=== PATIENT | female | born 1980 | race Two or more races ===

== ENCOUNTER 2018-02-19 12:13 | Emergency (ER) | payer MEDICAID, OTHER ==
[2018-02-19] MEDS ORDERED: diphenhydrAMINE 50 MG/ML SDV IVPUSH ONE (12:35)
[2018-02-19] MEDS ORDERED: Sodium Chloride 0.9% 2.5 ML Syringe FLUSH PRN (12:35)
[2018-02-19] MEDS ORDERED: Ketorolac 30 MG/ML SDV IVPUSH ONE (12:35)
[2018-02-19] MEDS ORDERED: Sodium Chloride 0.9% 10 ML Syringe FLUSH PRN (12:35)
[2018-02-19] MEDS ORDERED: Sodium Chloride 0.9% 1,000 ML IV ONE (12:35)
[2018-02-19] MEDS ORDERED: Ondansetron 4 MG/2 ML SDV IVPUSH ONE (12:35)
[2018-02-19] MEDS ORDERED: Metoclopramide 10 MG/2 ML SDV IV ONE (12:35)
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
[2018-02-19 13:25] LABS: CHLORIDE,CL 105 mmol/L (98-107); SODIUM,NA 140 mmol/L (136-145)
[2018-02-19] MEDS ORDERED: Morphine 2 MG/ML Syringe IVPUSH ONE (13:54)
--- NOTE | 2018-02-20 18:44 | CT ---
EXAM DATE: 02/19/18 PATIENT'S AGE: 37 Patient: NAIMA GARBER Facility: [place], [place] Site . Site : 1980 Study: CT Head wo cont [id number]/30/2018 1:22:28 PM Ordering Physician: Doctor Benitez Final Report: INDICATION: Headaches. Dizzy. Unbalanced for a couple days. History of a Chiari malformation. TECHNIQUE: Multiple axial images were obtained through the brain without contrast. Sagittal and coronal re-formatted images were obtained. COMPARISON: 12/27/2017. FINDINGS: The ventricles and sulci are within normal limits. There is no mass effect or midline shift. There is no intracranial hemorrhage. The gallego-white matter differentiation is unremarkable. There is no fracture identified on bone windows. There is near-complete opacification of the sphenoid sinuses unchanged from the previous the study. Again noted is the mild Chiari malformation unchanged. IMPRESSION: No change from 12/27/2017. No acute intracranial abnormality. Near-complete opacification of the sphenoid sinuses. Dictated by Antwan Damon MD @ 02/19/2018 2:18:24 PM Please note that all CT scans at this facility use dose modulation, iterative reconstruction, and/or weight-based dosing when appropriate to reduce radiation dose to as low as reasonably achievable. Dictated by: Antwan Damon MD @ 02/19/2018 14:19:00 (Electronic Signature) Report Signed by Proxy. AGUSTO
== END 2018-02-19 16:18 | disposition home or self-care (01) ==
LOC: MW.ED 12:13
DX: J32.9 Chronic sinusitis, unspecified (principal); F17.210 Nicotine dependence, cigarettes, uncomplicated; Z88.5 Allergy status to narcotic agent
CPT/HCPCS: 36415; 70450; 80053; 85025; 96361; 96374; 96375; 99284; J1200; J2270; J2405; J2765; J7040; 99283

== ENCOUNTER 2018-07-13 16:59 | Emergency (ER) | payer MEDICAID ==
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
[2018-07-13] MEDS ORDERED: Ketorolac 60 MG/2 ML SDV IM ONE (18:06)
--- NOTE | 2018-07-13 19:27 | CR ---
INDICATION: Trauma. Fall. Pain. TECHNIQUE: Three views of the left wrist. FINDINGS: No fracture, dislocation, erosion, or intrinsic skeletal lesion. IMPRESSION: Negative left wrist. Dictated by Patricio Curiel MD @ Jul 13 2018 7:26PM Signed by Dr. Patricio Curiel @ Jul 13 2018 7:26PM
--- NOTE | 2018-07-13 19:27 | CR ---
Indication: Fall Technique: None available Comparison: Two views of the left forearm Findings: Bones: Alignment is normal. No fractures or bone lesions. Joint spaces: Unremarkable. Soft tissues: Unremarkable. Impression: Negative. Dictated by Allan Kwon MD @ 07/13/2018 7:26:17 PM Dictated by: Allan Kwon MD @ 07/13/2018 19:26:21 (Electronically Signed)
[2018-07-13] MEDS ORDERED: Acetaminophen/HYDROcodone 325-5 MG Tab PO ONE (20:02)
== END 2018-07-13 20:22 | disposition home or self-care (01) ==
LOC: MW.ED 16:59
DX: S49.92XA Unspecified injury of left shoulder and upper arm, initial encounter (principal); Z88.6 Allergy status to analgesic agent; Z88.5 Allergy status to narcotic agent; F17.210 Nicotine dependence, cigarettes, uncomplicated; W00.0XXA Fall on same level due to ice and snow, initial encounter
CPT/HCPCS: 73090; 73110; 99283; A9270

== ENCOUNTER 2018-08-06 01:57 | Emergency (ER) | payer MEDICAID ==
[2018-08-06] MEDS ORDERED: LORazepam 2 MG/ML SDV IVPUSH ONE (02:19)
--- NOTE | 2018-08-06 03:01 | CR ---
Indication: Shortness of breath Technique: Chest 1 view Comparison: None Findings/Impression: Normal cardiomediastinal silhouette. 7 mm round nodular density projecting over the right lower lung field. No focal infiltrate, effusion, or pneumothorax. No acute osseous abnormality. Recommend nonemergent chest CT for evaluation of potential pulmonary nodule in the right lung. Dictated by Geovanna Sharma MD @ Aug 06 2018 2:58AM Signed by Dr. Geovanna Sharma @ Aug 06 2018 2:59AM
[2018-08-06 03:04] LABS: CHLORIDE,CL 108 mmol/L (98-107); SODIUM,NA 144 mmol/L (136-145)
[2018-08-06] MEDS ORDERED: Potassium Chloride 20 MEQ Tab.ER PO ONE (03:19)
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
== END 2018-08-06 05:00 | disposition home or self-care (01) ==
LOC: MW.ED 01:57
DX: G40.909 Epilepsy, unspecified, not intractable, without status epilepticus (principal); E87.6 Hypokalemia; Z88.8 Allergy status to other drugs, medicaments and biological substances; F17.210 Nicotine dependence, cigarettes, uncomplicated
CPT/HCPCS: 36415; 71045; 80053; 80177; 81001; 83735; 84484; 85025; 87804; 93005; 96374; 99285; A9270; J2060

== ENCOUNTER 2019-01-01 03:44 | Emergency (ER) | payer MEDICAID ==
[2019-01-01] MEDS ORDERED: Sodium Chloride 0.9% 10 ML Syringe FLUSH PRN (03:48)
[2019-01-01] MEDS ORDERED: Sodium Chloride 0.9% 1,000 ML IV ONE (03:48)
[2019-01-01] MEDS ORDERED: Sodium Chloride 0.9% 2.5 ML Syringe FLUSH PRN (03:48)
[2019-01-01] MEDS ORDERED: Ondansetron 4 MG/2 ML SDV IVPUSH ONE (03:48)
[2019-01-01] MEDS ORDERED: SUMAtriptan 6 MG/0.5 ML SDV SUBCUT ONE (04:06)
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
[2019-01-01 04:37] LABS: BLOOD UREA NITROGEN,BUN 10 mg/dL (7.0-18.0); CHLORIDE,CL 105 mmol/L (98-107); GLUCOSE RANDOM 122 mg/dL (74-106); POTASSIUM,K 3.4 mmol/L (3.5-5.1); SODIUM,NA 143 mmol/L (136-145)
--- NOTE | 2019-01-01 04:44 | CR ---
INDICATION: Chest pain TECHNIQUE: Chest radiograph 1 view COMPARISON: None FINDINGS: Mediastinum: The mediastinum is normal in appearance. The heart silhouette is normal in size and morphology. Lung: Both lungs are unremarkable in appearance. There is a subtle nodular density in the left upper lung zone measuring 6 mm and overlying the medial margin of the left scapula. No sign of pleural effusion seen. No pneumothorax is identified. IMPRESSION: 1. There is a subtle nodular density in the left upper lung zone measuring 6 mm and overlying the medial margin of the left scapula. This may represent a summation artifact. Follow-up two view chest radiograph is recommended to exclude a pulmonary nodule. Dictated by Devendra Malik MD @ 01/01/2019 4:42:23 AM Dictated by: Devendra Malik MD @ 01/01/2019 04:42:26 (Electronically Signed)
--- NOTE | 2019-01-01 04:46 | CT ---
INDICATION: Headache, "blacked out" TECHNIQUE: CT Head without i.v. contrast. COMPARISON: None FINDINGS: CSF space: The ventricles are normal for age. Brain: No evidence of mass, acute infarction or hemorrhage is seen. No mass-effect or midline shift is seen. The brain parenchyma is otherwise normal in appearance with preservation of the gallego-white matter junction. Calvarium: Opacification of the sphenoid sinuses present which may be due to a large polyp, mucocele, or retention cyst. The mastoid air cells are clear. The visualized orbits are grossly unremarkable. The calvarium is unremarkable in appearance with no fractures identified. IMPRESSIONS: 1. No evidence of acute infarction, intracranial hemorrhage, or mass-effect seen. 2. Opacification of the sphenoid sinuses present which may be due to a large polyp, mucocele, or retention cyst. Dictated by Devendra Malik MD @ 01/01/2019 4:43:51 AM Please note that all CT scans at this facility use dose modulation, iterative reconstruction, and/or weight-based dosing when appropriate to reduce radiation dose to as low as reasonably achievable. Dictated by: Devendra Malik MD @ 01/01/2019 04:44:00 (Electronically Signed)
[2019-01-01] MEDS ORDERED: Acetaminophen/Butalbital/Caffeine 325-50-40 MG Tab PO ONE (04:53)
== END 2019-01-01 05:05 | disposition home or self-care (01) ==
LOC: MW.ED 03:44
DX: R55 Syncope and collapse (principal); G43.909 Migraine, unspecified, not intractable, without status migrainosus; F41.9 Anxiety disorder, unspecified; F32.9 Major depressive disorder, single episode, unspecified; F17.210 Nicotine dependence, cigarettes, uncomplicated; Z79.899 Other long term (current) drug therapy; Z88.6 Allergy status to analgesic agent; Z88.5 Allergy status to narcotic agent; Z88.8 Allergy status to other drugs, medicaments and biological substances; Z98.51 Tubal ligation status
CPT/HCPCS: 36415; 70450; 71045; 80053; 80177; 80305; 81001; 84443; 84484; 85025; 93005; 96361; 96372; 96374; 99285; A9270; G0480; J2405; J3030; J7040; 99284

== ENCOUNTER 2019-05-18 14:42 | Emergency (ER) | payer MEDICAID ==
[2019-05-18] MEDS ORDERED: Albuterol/Ipratropium 3.0-0.5 MG/3 ML Neb Soln NEB ONE (15:07)
[2019-05-18] MEDS ORDERED: Ketorolac 30 MG/ML SDV IVPUSH ONE (15:07)
[2019-05-18] MEDS ORDERED: methylPREDNISolone Sodium Succinate 125 MG/2 ML SDV IVPUSH ONE (15:07)
[2019-05-18] MEDS ORDERED: Sodium Chloride 0.9% 1,000 ML IV ONE (15:07)
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
[2019-05-18] MEDS ORDERED: Ondansetron 4 MG/2 ML SDV IVPUSH ONE (15:12)
[2019-05-18 16:18] LABS: BLOOD UREA NITROGEN,BUN 8 mg/dL (7.0-18.0); CARBON DIOXIDE,CO2 27.5 mmol/L (21.0-32.0); CHLORIDE,CL 101 mmol/L (98-107); GLUCOSE RANDOM 103 mg/dL (74-106); POTASSIUM,K 3.1 mmol/L (3.5-5.1); SODIUM,NA 138 mmol/L (136-145)
--- NOTE | 2019-05-18 16:32 | CR ---
INDICATION: Shortness of breath, cough COMPARISON: Single view chest 01/01/2019 TECHNIQUE: Frontal and lateral views of the chest FINDINGS: The lungs are clear. There is no pleural effusion or pneumothorax. The cardiomediastinal silhouette is normal. A 13 mm calcific density nodule in the right lung is similar to prior. The osseous structures are unremarkable. IMPRESSION: No acute intrathoracic process. Dictated by Trell Roberto MD @ May 18 2019 4:29PM Signed by Dr. Trell Roberto @ May 18 2019 4:31PM
[2019-05-18] MEDS ORDERED: Potassium Chloride 20 MEQ Tab.ER PO ONE (16:51)
[2019-05-18] MEDS ORDERED: Albuterol 8 GM Inhaler INH ONE (16:51)
== END 2019-05-18 17:21 | disposition home or self-care (01) ==
LOC: MW.ED 14:42
DX: J40 Bronchitis, not specified as acute or chronic (principal); E87.6 Hypokalemia; F32.9 Major depressive disorder, single episode, unspecified; F41.9 Anxiety disorder, unspecified; F17.210 Nicotine dependence, cigarettes, uncomplicated; Z79.899 Other long term (current) drug therapy; Z88.5 Allergy status to narcotic agent; Z88.6 Allergy status to analgesic agent
CPT/HCPCS: 71046; 80053; 85025; 87081; 87804; 87880; 94640; 96361; 96374; 96375; 99284; A9270; J2405; J2930; J7030; J7620-GY

== ENCOUNTER 2019-05-25 22:53 | Emergency (ER) | payer MEDICAID ==
[2019-05-26] MEDS ORDERED: Acetaminophen/HYDROcodone 325-10 MG Tab PO ONE (00:10)
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
== END 2019-05-26 00:26 | disposition home or self-care (01) ==
LOC: MW.ED 22:53
DX: M54.5 Low back pain (principal); F41.9 Anxiety disorder, unspecified; F32.9 Major depressive disorder, single episode, unspecified; F17.210 Nicotine dependence, cigarettes, uncomplicated; Z90.49 Acquired absence of other specified parts of digestive tract; Z88.5 Allergy status to narcotic agent; Z98.51 Tubal ligation status; Z79.899 Other long term (current) drug therapy
CPT/HCPCS: 99283; A9270

== ENCOUNTER 2019-06-03 21:38 | Emergency (ER) | payer MEDICAID ==
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
[2019-06-03] MEDS ORDERED: Cyclobenzaprine 10 MG Tab PO ONE (22:44)
== END 2019-06-03 23:06 | disposition home or self-care (01) ==
LOC: MW.ED 21:38
DX: M54.5 Low back pain (principal); F41.9 Anxiety disorder, unspecified; F32.9 Major depressive disorder, single episode, unspecified; F17.210 Nicotine dependence, cigarettes, uncomplicated; Z88.6 Allergy status to analgesic agent; Z88.5 Allergy status to narcotic agent
CPT/HCPCS: 99283; A9270

== ENCOUNTER 2019-11-24 01:00 | Emergency (ER) | payer MEDICAID ==
[2019-11-24] MEDS ORDERED: Sodium Chloride 0.9% 2.5 ML Syringe FLUSH PRN (01:52)
[2019-11-24] MEDS ORDERED: Acetaminophen 500 MG Tab PO ONE (01:52)
[2019-11-24] MEDS ORDERED: Sodium Chloride 0.9% 10 ML Syringe FLUSH PRN (01:52)
[2019-11-24] MEDS ORDERED: Prochlorperazine 10 MG in Sodium Chloride 0.9% 50 ML IV ONE (01:53)
[2019-11-24 02:19] LABS: BLOOD UREA NITROGEN,BUN 8 mg/dL (7.0-18.0); CARBON DIOXIDE,CO2 27.3 mmol/L (21.0-32.0); CHLORIDE,CL 103 mmol/L (98-107); GLUCOSE RANDOM 99 mg/dL (74-106); POTASSIUM,K 3.3 mmol/L (3.5-5.1); SODIUM,NA 141 mmol/L (136-145)
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
[2019-11-24] MEDS ORDERED: Iopamidol 755 Mg/ML 100 ML Bottle IVPUSH ONE (03:04)
[2019-11-24] MEDS ORDERED: Haloperidol Lactate 5 MG/ML SDV IM ONE (03:43)
[2019-11-24] MEDS ORDERED: Haloperidol Lactate 5 MG/ML SDV ONE (03:44)
--- NOTE | 2019-11-24 04:06 | CT ---
INDICATION: Severe left posterior headache with neck pain TECHNIQUE: CT Head without i.v. contrast. COMPARISON: None FINDINGS: CSF space: The ventricles are normal for age. Brain: No evidence of mass, acute infarction or hemorrhage is seen. No mass-effect or midline shift is seen. Chiari II malformation is present with crowding of the foramen magnum. The brain parenchyma is otherwise normal in appearance with preservation of the gallego-white matter junction. Calvarium: Retention cysts or polyps are noted in the sphenoid sinus. The visualized paranasal sinuses are well aerated. The mastoid air cells are clear. The visualized orbits are grossly unremarkable. The calvarium is unremarkable in appearance with no fractures identified. IMPRESSION: 1. No evidence of acute infarction, intracranial hemorrhage, or mass-effect seen. Please note that all CT scans at this facility use dose modulation, iterative reconstruction, and/or weight-based dosing when appropriate to reduce radiation dose to as low as reasonably achievable. Dictated by: Devendra Malik MD @ 11/24/2019 04:04:06 (Electronically Signed)
--- NOTE | 2019-11-24 04:08 | CT ---
INDICATION: Headache, neck pain, Chiari malformation. TECHNIQUE: After standard noncontrast head CT, high resolution axial CT images acquired through the head and neck following rapid intravenous administration of iodinated contrast. Multiplanar MIPS of cranial and cervical vasculature performed. COMPARISON: None. FINDINGS: Noncontrast head CT: There is inferior displacement of the cerebellar tonsils consistent with Chiari 1 malformation. There is no intracranial hemorrhage or fluid collection. The gallego-white matter differentiation is maintained. The ventricles are of normal morphology. The basal cisterns are clear. Small mucous retention cysts are present in the sphenoid sinus. There is no bony erosion or remodeling. CTA head: There is normal filling of the intracranial vasculature; i.e. there is no large vessel occlusion or intracranial stenosis. There is no cerebral aneurysm or evidence for vascular malformation. CTA neck: There is no carotid or vertebral artery stenosis or dissection. Bilateral jugular adenopathy noted with nodes measuring up to 1.3 cm. The soft tissues of the neck are otherwise within normal limits. There is slight degenerative anterolisthesis at C3-4 and C4-5. The cervical spine is in otherwise normal alignment. The lung apices are clear. IMPRESSION: No acute intracranial abnormality at CT/CTA. Findings of Chiari 1 malformation. No cerebral aneurysm. No carotid or vertebral artery stenosis or dissection. Corby Tenorio MD Neurointerventional [employer] Please note that all CT scans at this facility use dose modulation, iterative reconstruction, and/or weight-based dosing when appropriate to reduce radiation dose to as low as reasonably achievable. Dictated by Corby Tenorio MD @ Nov 24 2019 9:51AM Signed by Dr. Corby Tenorio @ Nov 24 2019 9:51AM
== END 2019-11-24 04:31 | disposition home or self-care (01) ==
LOC: MW.ED 01:00
DX: R51 Headache (principal); F32.9 Major depressive disorder, single episode, unspecified; F17.210 Nicotine dependence, cigarettes, uncomplicated; Z88.6 Allergy status to analgesic agent; Z88.5 Allergy status to narcotic agent; Z79.899 Other long term (current) drug therapy
CPT/HCPCS: 36415; 70496; 70498; 80048; 84703; 85025; 96365; 96372; 99284; A9270; J0780; J1630; J7050; Q9967

== ENCOUNTER 2021-05-10 13:42 | Emergency (ER) | payer MEDICAID ==
[2021-05-10] MEDS ORDERED: Metoclopramide 10 MG/2 ML SDV IVPUSH ONE (14:12)
[2021-05-10] MEDS ORDERED: diphenhydrAMINE 50 MG/ML SDV IVPUSH ONE (14:12)
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
--- NOTE | 2021-05-10 14:51 | CT ---
INDICATION: Posttraumatic headache. History of Chiari I malformation COMPARISON: January 01, 2019 TECHNIQUE: CT examination of the head was performed as axial sections without intravenous contrast. Images were obtained from the vertex of the skull through the skull base. Please note that all CT scans at this facility use dose modulation, iterative reconstruction, and/or weight-based dosing when appropriate to reduce radiation dose to as low as reasonably achievable. FINDINGS: The brain shows no sign of mass lesion, mass effect, hemorrhage, or edema. The ventricles and sulci are normal in appearance for the patient`s age. The visualized portions of the orbits are normal in appearance. The osseous structures are normal in their appearance with no sign of abnormality in the skull base or calvarium. On the midline sagittal reformats, there is crowding the cerebellar tonsils at the foramen magnum. This is similar to 2019 and is best quantified by MRI. IMPRESSION: 1. No visible acute posttraumatic finding. 2. Re-demonstration of findings of Chiari I malformation. Please note that all CT scans at this facility use dose modulation, iterative reconstruction, and/or weight-based dosing when appropriate to reduce radiation dose to as low as reasonably achievable. Dictated by Emeka Aquino MD @ 05/10/2021 2:50:12 PM (Electronically Signed)
== END 2021-05-10 15:01 | disposition home or self-care (01) ==
LOC: MW.ED 13:42
DX: G44.309 Post-traumatic headache, unspecified, not intractable (principal); G40.909 Epilepsy, unspecified, not intractable, without status epilepticus; Z88.5 Allergy status to narcotic agent; Z79.899 Other long term (current) drug therapy
CPT/HCPCS: 70450; 96374; 96375; 99283; J1200; J2765

== ENCOUNTER 2021-06-29 00:41 | Emergency (ER) | payer MEDICAID ==
[2021-06-29] MEDS ORDERED: Divalproex Sodium Delayed-Release 500 MG Tab.CR PO ONE (01:06)
== END 2021-06-29 01:46 | disposition home or self-care (01) ==
LOC: MW.ED 00:41
DX: G40.909 Epilepsy, unspecified, not intractable, without status epilepticus (principal); G43.909 Migraine, unspecified, not intractable, without status migrainosus; M79.631 Pain in right forearm; Z88.8 Allergy status to other drugs, medicaments and biological substances; Z90.49 Acquired absence of other specified parts of digestive tract
CPT/HCPCS: 73090; 99284; A9270